=== PATIENT | male | born 1990 | race Caucasian/White ===

== ENCOUNTER 2020-08-25 19:58 | Emergency (ER) | payer MEDICAID, OTHER ==
[~2020-08-25] VITALS: Ht 182.9 cm; Wt 104.5 kg
[~2020-08-25 19:58] MED LIST: NO HOME MEDS
[2020-08-25 20:10] VITALS: BP 130/82
== END 2020-08-25 21:06 | disposition left against medical advice (07) ==
LOC: ER 19:59
DX: H92.02 Otalgia, left ear (principal); Z53.21 Procedure and treatment not carried out due to patient leaving prior to being seen by health care provider

== ENCOUNTER 2020-08-26 18:31 | Emergency (ER) | payer SELFPAY ==
[~2020-08-26] VITALS: Ht 182.9 cm; Wt 104.0 kg
[2020-08-26 18:39] VITALS: BP 133/84
== END 2020-08-26 19:30 | disposition home or self-care (01) ==
LOC: ER 18:32
DX: J01.90 Acute sinusitis, unspecified (principal); H92.02 Otalgia, left ear; Z56.0 Unemployment, unspecified
CPT/HCPCS: 99282